=== PATIENT | male | born 1975 | race Caucasian/White ===

== ENCOUNTER 2018-05-22 12:57 | Emergency (ER) | payer OTHER ==
[~2018-05-22] VITALS: Ht 170.2 cm; Wt 100.2 kg
[2018-05-22 13:00] VITALS: Ht 170.2 cm; Wt 100.2 kg
[2018-05-22 13:42] VITALS: BP 154/95
== END 2018-05-22 13:42 | disposition home or self-care (01) ==
LOC: ED 12:57
DX: G45.9 Transient cerebral ischemic attack, unspecified (principal)